=== PATIENT | male | born 1955 | race Two or more races ===

== ENCOUNTER 2025-02-06 18:03 | Emergency (ER) | payer OTHER ==
[~2025-02-06] VITALS: Ht 165.1 cm; Wt 75.0 kg
[2025-02-06 18:15] VITALS: BP 143/82; PULSE 68; RESP 18; TEMP 97.8; O2SAT 98
== END 2025-02-06 19:17 | disposition left against medical advice (07) ==
LOC: ER 18:03 → EDBD 18:03 → ER 19:17
DX: R11.2 Nausea with vomiting, unspecified (principal); Z53.21 Procedure and treatment not carried out due to patient leaving prior to being seen by health care provider